=== PATIENT | male | born 1930 | race Caucasian/White ===

== ENCOUNTER 2020-05-09 13:19 | Inpatient (IN) | payer MEDICARE, BC ==
[2020-05-09] MEDS ORDERED: ONDANSETRON 4 MG/2 ML VIAL IVP PRN (17:44)
[2020-05-09] MEDS ORDERED: ACETAMINOPHEN TAB 325 MG TAB PO PRN (17:44)
[2020-05-09] MEDS ORDERED: ALPRAZolam 0.25 MG TAB PO PRN (18:00)
--- NOTE | 2020-05-09 18:58 | US ---
EXAMINATION TYPE: US carotid duplex BILAT DATE OF EXAM: 05/09/2020 COMPARISON: MR CLINICAL HISTORY: arm tingling and numbness. Left arm tingling and numbness. Hx hypertension, hyperli pidemia, previous smoker per patient. EXAM MEASUREMENTS: RIGHT: Peak Systolic Velocity (PSV) cm/sec ----- Right CCA: 67.4 ----- Right ICA: 82.8 ----- Right ECA: 116.8 ICA/CCA ratio: 1.2 RIGHT: End Diastole cm/sec ----- Right CCA: 9.0 ----- Right ICA: 9.1 ----- Right ECA: 0.0 LEFT: Peak Systolic Velocity (PSV) cm/sec ----- Left CCA: 67.4 ----- Left ICA: 53.6 ----- Left ECA: 86.1 ICA/CCA ratio: 0.8 LEFT: End Diastole cm/sec ----- Left CCA: 9.9 ----- Left ICA: 13.0 ----- Left ECA: 0.0 VERTEBRALS (direction of flow): Right Vertebral: Antegrade Left Vertebral: Antegrade Rhythm: Arrhythmia Plaque visualized bilateral CCA, bulb, ICA and ECA. No elevated velocities at this time. Incidental finding: Complex, heterogeneous area seen within left thyroid lobe measuring 1.5 x 0.9 x 1 .3 cm. This area shows vascularity. IMPRESSION: There is antegrade flow in the vertebral arteries. The images and measurements suggest less than 50% stenosis in both internal carotid arteries. There is solid nodule in the left thyroid lobe. Criteria for Assigning % of Stenosis / Diameter reduction (Estimation based on the indirect measurements of the internal carotid artery velocities (ICA PSV). 1. Normal (no stenosis)=ICA PSV < 125 cm/s: ratio < 2.0: ICA EDV<40 cm/s. 2. Less than 50% stenosis=ICA PSV < 125 cm/s: ratio < 2.0: ICA EDV<40 cm/s. 3. 50 to 69% stenosis=ICA PSV of 125 to 230 cm/s: ration 2.0 ? 4.0: ICA EDV 40-100 cm/s. 4. Greater than 70% stenosis to near occlusion= ICA PSV > 230 cm/s: ratio > 4.0: ICA EDV > 100 cm/s. 5. Near occlusion= ICA PSV velocities may be low or undetectable: variable ratio and ICA EDV. 6. Total occlusion=unable to detect flow.
[2020-05-09] MEDS: SENNOSIDES 8.6 MG TAB PO SCH (20:28)
[2020-05-09] MEDS: MEMANTINE 10 MG TAB PO SCH (20:28)
[2020-05-09] MEDS: DOXAZOSIN 1 MG TAB PO SCH (20:29)
[2020-05-09] MEDS: traZODone HCL 50 MG TAB PO SCH (20:29)
[2020-05-09] MEDS: DONEPEZIL 5 MG TAB PO SCH (20:29)
[2020-05-09] MEDS ORDERED: ALPRAZolam 0.5 MG TAB PO SCH (21:00)
[2020-05-09] MEDS ORDERED: AMITRIPTYLINE HCL 10 MG TAB PO SCH (21:00)
[2020-05-10 06:37] LABS: Basophils % (A) 0 %; Eosinophils % (A) 0 %; HCT 39.7 % (39.0-53.0); HGB 13.5 gm/dL (13.0-17.5); Lymphocytes # (A) 0.8 k/uL (1.0-4.8); Lymphocytes % (A) 7 %; MCV 94.3 fL (80.0-100.0); Mean Platelet Volume 7.4; Monocytes # (A) 0.5 k/uL (0-1.0); Monocytes % (A) 4 %; Neutrophils % (A) 88 %; Platelet Count 232 k/uL (150-450); RBC 4.22 m/uL (4.30-5.90); WBC 11.4 k/uL (3.8-10.6)
[2020-05-10] MEDS: SENNOSIDES 8.6 MG TAB PO SCH ×2 (08:28→19:10)
[2020-05-10] MEDS: DULoxetine HCL 60 MG CAPSULE.DR PO SCH (08:28)
[2020-05-10] MEDS: MAGNESIUM OXIDE 400 MG TAB PO SCH (08:28)
[2020-05-10] MEDS: VIT A,C & E-LUTEIN-MINERALS 1 EACH TAB PO SCH (08:28)
[2020-05-10] MEDS: MEMANTINE 10 MG TAB PO SCH ×2 (08:29→19:09)
[2020-05-10] MEDS: CHOLECALCIFEROL 1,000 UNIT TAB PO SCH (08:29)
[2020-05-10] MEDS: ATORVASTATIN 10 MG TAB PO SCH (08:29)
[2020-05-10] MEDS: amLODIPine 10 MG TAB PO SCH (08:29)
[2020-05-10] MEDS: ASPIRIN 81 MG PO SCH (08:29)
[2020-05-10] MEDS: PANTOPRAZOLE 40 MG TABLET PO SCH ×2 (08:29→16:49)
[2020-05-10 11:13] LABS: African American GFR (CKD) 33.8 (60.0-200.0); Anion Gap 9.2 mmol/L (4.00-12.00); Calcium 9.4 mg/dL (8.7-10.3); Carbon Dioxide 27.8 mmol/L (21.6-31.8); Magnesium 2.2 mg/dL (1.5-2.4); Non-African American GFR(CKD) 29.1 (60.0-200.0); Potassium 4.5 mmol/L (3.5-5.5)
--- NOTE | 2020-05-10 11:20 | P.CNNES ---
History of Present Illness Consult date: 05/10/20 Requesting physician: Ariella Dukes Reason for Consult: left arm weakness and numbness History of Present Illness: This is an 89-year-old gentleman with medical history of mild dementia, hypertension, hyperlipidemia, prostate cancer in 1997 status post focal radiation radiation l lower back surgery about 7 years ago, that was transfered from [facility] for left arm weakness and numbness. Patient noticed that he's been having left hand and forearm weakness for the last 1 week. As well as that he's been having left hand numbness for the last 1 year but he felt like it was a getting worse in the last 1 week. He stated that the initially was in the left hand, but now it's moving in the medial side, the ulnar side all the way to the axillay area and to the left side of chest. Patient does have lower neck pain for the last 6 months and he stated that the pain is a 5-6/10. He denies any radiation of the neck pain. He denies any neck trauma or falls recently. He denies difficulty getting his words out or worsening of his vision. He does have poor vision and he stated and that's chronic. He denies any weakness of the lower extremity or any numbness. He stated that he walks unassisted at home and without any difficulties. He resides with his . At [facility] he was given a neck brace for suspicion pinched nerve. There are other concern was possibly a stroke. He was given a diagnosis of dementia and the last for 5 month by his primary care physician as well as psychiatrist since that he was having trouble with his memory (mostly with anterograde memory loss than remote). Regarding his activities of daily living (ADL's), he said that that he is able to feed himself without any assistance, use the bathroom on his own. He doesn't drive because his poor vision and vision. He has not seen a neurologist regarding the memory loss. The patient is on home dose memantine 10 mg 1 tablet twice a day, Aricept 5 mg daily at bedtime. Patient is also on aspirin 81 mg daily. On Zocor. Patient is also on amitriptyline 10 mg daily at bedtime. Also is on now fluoxetine 120 mg daily. Also on trazodone 150 mg daily. Work-up at outside facility consisted of: CT of the head was reported as no acute intracranial process. On the body as stated that the patient has moderate cerebral volume loss. Mild burden nonspecific white matter disease likely related chronic microvascular risk factors. No convincing evidence of acute and infarct. No acute intracranial hemorrhage. EKG is reported as sinus rhythm with PACs with first-degree AV block. Left axis deviation. Abnormal EKG. His labs at outside facility as sodium is 139, potassium 4.2, AST is 21 and ALT 17. BUN 28 and the creatinine is 1.8. Calcium is 9.5. Work-up in our hospital consisted of: Initial vitals: blood pressure: 157/72, heart rate 72, respiratory rate 18, temperature 97.9F orally and pulse oxygen is 97% at room air. Bilateral carotid duplex is reported as: There is anterior grade flow in the vertebral arteries. The images and measurements suggest less than 50% stenosis in both internal carotid arteries. There is a solid nodule in the left thyroid lobe. Wbc on presentation is 11.4. He was restarted on home dose of aspirin 81 mg and the was started on the Lipitor 10 mg daily. Of note upon reviewing medical records [facility] is MRI of the brain in our facility and that was in 11/03/2014 is reported as no evidence of recent infarct. There is a mild to moderate diffuse cerebral atrophy and moderate chronic small vessel ischemic changes noted. Review of Systems The template review of system is reviewed with the patient independent positive and negative as per HPI. Past Medical History Past Medical History: Cancer Additional Past Medical History / Comment(s): Prostate Cancer 1997 History of Any Multi-Drug Resistant Organisms: None Reported Past Surgical History: Back Surgery Past Anesthesia/Blood Transfusion Reactions: No Reported Reaction Past Psychological History: Anxiety, Depression Smoking Status: Former smoker - Past Family History Father Family Medical History: No Reported History Medications and Allergies Home Medications Medication Instructions Recorded Confirmed Type ALPRAZolam [ALPRAZolam XR] 1 tab PO DAILY PRN 05/09/20 05/09/20 History ALPRAZolam [Xanax] 0.5 mg PO HS 05/09/20 05/09/20 History Amitriptyline HCl 10 mg PO HS 05/09/20 05/09/20 History Aspirin 81 mg PO DAILY 05/09/20 05/09/20 History Cholecalciferol [Vitamin D3 (25 1 tab PO DAILY 05/09/20 05/09/20 History Mcg = 1000 Iu)] DULoxetine HCL [Cymbalta] 120 mg PO DAILY 05/09/20 05/09/20 History Donepezil [Aricept] 5 mg PO HS 05/09/20 05/09/20 History Magnesium 500 mg PO DAILY 05/09/20 05/09/20 History Memantine [Namenda] 10 mg PO BID 05/09/20 05/09/20 History Omeprazole 40 mg PO AC-BID 05/09/20 05/09/20 History Simvastatin [Zocor] 1 tab PO DAILY 05/09/20 05/09/20 History Terazosin [Hytrin] 1 mg PO HS 05/09/20 05/09/20 History Vits A,C,E/Lutein/Minerals 1 tab PO DAILY 05/09/20 05/09/20 History [Ocuvite with Lutein Tablet] amLODIPine [Norvasc] 10 mg PO DAILY 05/09/20 05/09/20 History traZODone HCL 150 mg PO HS 05/09/20 05/09/20 History Allergies Allergy/AdvReac Type Severity Reaction Status Date / Time No Known Allergies Allergy Verified 05/09/20 17:34 Physical Examination - Vital Signs Vital Signs: Vital Signs Temp Pulse Pulse Resp BP BP Pulse Ox 05/10/20 06:57 97.7 F 88 17 149/79 97 05/10/20 01:00 97.9 F 77 20 147/70 97 05/09/20 20:00 85 72 20 05/09/20 19:39 98 F 85 20 153/79 96 05/09/20 17:47 97.9 F 72 18 157/72 97 Intake and Output 05/09/20 05/10/20 05/10/20 22:59 06:59 14:59 Intake Total 640 100 Balance 640 100 Intake: Oral 640 100 Other: # Voids 0 Weight 58.967 kg GENERAL: The patient is lying in bed and is not in acute distress. CHEST: The heart rate is regular rate rhythm. No murmurs to auscultation. No carotid bruit bilaterally. LUNG: Clear to auscultation bilaterally no wheezing noted throughout. Not labored breathing. ABDOMEN/GI: Bowel sounds present in all 4 quadrants. No tenderness to palpation throughout. NEUROLOGICAL: Higher mental function: The patient is awake, alert, oriented to self, place and time. Patient is following commands. No aphasia and no neglect. Cranial nerves: The pupils are round, equal and reactive to light and accommodation. Visual valente are full to confrontation throughout. Extraocular movement is intact no nystagmus is noted. Facial sensation is normal to touch throughout. The facial strength is normal throughout. Hearing is normal bilaterally to hand rub. Tongue is midline and moved [id number] without any d ifficulty. No dysarthria is noted. Shoulder shrug is normal bilaterally. Motor: Gait is normal with normal arm swings. The strength is 5-/5 left hand director style. Left distal upper extremity is 5-/5. Otherwise strength is 5/5 throughout. Normal tone and bulk. Cerebellum: Normal finger to nose bilaterally. Sensation: Sensation to touch and pinprick and inconsistent at times he stated that he is having decreased sensation over the left ulnar distribution up on to the mid forearm and at that time she stated the that was normal. Otherwise the rest of the sensation exam is normal to touch and light pinprick.. Reflexes (right/left): 2+ throughout except ankles are 1+ bilaterally Plantars are downgoing bilaterally. Results - Laboratory Findings CBC and BMP: 05/10/20 06:24 05/10/20 06:24 Abnormal Lab Findings: Abnormal Labs 05/10/20 06:24 WBC 11.4 H RBC 4.22 L Neutrophils # 10.0 H Lymphocytes # 0.8 L Assessment and Plan Assessment: This is an 89-year-old gentleman that was transferred from [facility] for further workup of left upper extremity numbness and weakness. Patient stated that the his weakness that has been going on for last 1 week. And his numbness in the left hand is is chronic for the last 1 year but has worsened in the last 1 week moving up the ulnar distribution all the way to the [place] to the left side of the chest. Patient does have chronic history of the base neck pain without any radiation. Acute Left upper extremity weakness with numbness could be due to stroke versus cervical radiculopathy (stated had numbness of left hand for last one year but has worsened in last one weak. Also has base neck pain). Questionable dementia Kidney isnuffiency (not sure if acute vs acute on chronic). Hypertension Hyperlipidemia History of prostate cancer History of the lower back surgery (about 7 years ago) Plan: * CT of the head at outside hospital was reported as no acute intracranial process. On the body as stated that the patient has moderate cerebral volume loss. Mild burden nonspecific white matter disease likely related chronic microvascular risk factors. No convincing evidence of acute and infarct. No acute intracranial hemorrhage. * Bilateral carotid duplex is reported as: There is anterior grade flow in the vertebral arteries. The images and measurements suggest less than 50% stenosis in both internal carotid arteries. There is a solid nodule in the left thyroid lobe. * He was restarted on home dose of aspirin 81 mg and the was started on the Lipitor 10 mg daily. * I ordered MRI of the brain and MRI of the cervical spine. * I ordered 2-D echo * I ordered the lipid panel. 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 * I ordered TSH, vitamin B12, folate, vitamin B6 which will tell us if there is any reversible dementia. * I placed the patient on the continuous cardiac monitoring * In my opinion I would avoid amitriptyline which is tricyclic and has anti- cholinergic activity which can affect with memory and can cause confusion. Also the patient is on duloxetine which I think is a great medication for his age as well as trazodone. I * The patient needs to follow-up with a neurologist as an outpatient within 2-3 weeks for these symptoms as well as the further workup of his dementia. * I will also recommend an EMG with nerve conduction study outpatient. * Regarding kidney insufficiency management, we'll defer that to the primary team. Will defer rest of medical management to primary team. Plan was discussed with the patient and his nurse. Thank you for the consultation. Nicho Robbins MD Neuro-hospitalist Time with Patient: Greater than 30
--- NOTE | 2020-05-10 12:32 | P.HPIM ---
History of Present Illness 89-year-old the pleasant male came in with complains of weakness and numbness in the left arm patient numbness is predominantly on the lateral aspect in the radial nerve territory. Patient has a neck issues in the past patient denied any headache or seizure-like activity. Patient symptoms has been going on for about a week. does have a history of prostate cancer in the past and patient underwent focal radiation and lower back surgery about 7 years ago. She denied any visual problems hearing problems at this time. Patient does have diagnosis of dementia and is undergone up as an does have chronic kidney disease with baseline creatinine around 2 and his present creatinine is around [address] of the head which did not show any acute process patient was subsequently transferred here for further evaluation by neurology and possibly a spinal surgeon. And had a carotid Doppler here which showed about 50% stenosis bilaterally. Patient is on aspirin and Lipitor at this time Review of Systems REVIEW OF SYSTEMS: CONSTITUTIONAL: No fever, no malaise, no fatigue. HEENT: No recent visual problems or hearing problems. Denied any sore throat. CARDIOVASCULAR: No chest pain, orthopnea, PND, no palpitations, no syncope. PULMONARY: No shortness of breath, no cough, no hemoptysis. GASTROINTESTINAL: No diarrhea, no nausea, no vomiting, no abdominal pain. NEUROLOGICAL: No headaches. HEMATOLOGICAL: Denies any bleeding or petechiae. GENITOURINARY: Denies any burning micturition, frequency, or urgency. MUSCULOSKELETAL/RHEUMATOLOGICAL: Denies any joint pain, swelling, or any muscle pain. ENDOCRINE: Denies any polyuria or polydipsia. The rest of the 14-point review of systems is negative. Past Medical History Past Medical History: Cancer Additional Past Medical History / Comment(s): Prostate Cancer 1997 History of Any Multi-Drug Resistant Organisms: None Reported Past Surgical History: Back Surgery Past Anesthesia/Blood Transfusion Reactions: No Reported Reaction Past Psychological History: Anxiety, Depression Smoking Status: Former smoker - Past Family History Father Family Medical History: No Reported History Medications and Allergies Home Medications Medication Instructions Recorded Confirmed Type ALPRAZolam [ALPRAZolam XR] 1 tab PO DAILY PRN 05/09/20 05/09/20 History ALPRAZolam [Xanax] 0.5 mg PO HS 05/09/20 05/09/20 History Amitriptyline HCl 10 mg PO HS 05/09/20 05/09/20 History Aspirin 81 mg PO DAILY 05/09/20 05/09/20 History Cholecalciferol [Vitamin D3 (25 1 tab PO DAILY 05/09/20 05/09/20 History Mcg = 1000 Iu)] DULoxetine HCL [Cymbalta] 120 mg PO DAILY 05/09/20 05/09/20 History Donepezil [Aricept] 5 mg PO HS 05/09/20 05/09/20 History Magnesium 500 mg PO DAILY 05/09/20 05/09/20 History Memantine [Namenda] 10 mg PO BID 05/09/20 05/09/20 History Omeprazole 40 mg PO AC-BID 05/09/20 05/09/20 History Simvastatin [Zocor] 1 tab PO DAILY 05/09/20 05/09/20 History Terazosin [Hytrin] 1 mg PO HS 05/09/20 05/09/20 History Vits A,C,E/Lutein/Minerals 1 tab PO DAILY 05/09/20 05/09/20 History [Ocuvite with Lutein Tablet] amLODIPine [Norvasc] 10 mg PO DAILY 05/09/20 05/09/20 History traZODone HCL 150 mg PO HS 05/09/20 05/09/20 History Allergies Allergy/AdvReac Type Severity Reaction Status Date / Time No Known Allergies Allergy Verified 05/09/20 17:34 Physical Exam Vitals: Vital Signs Temp Pulse Pulse Resp BP BP Pulse Ox 05/10/20 06:57 97.7 F 88 17 149/79 97 05/10/20 01:00 97.9 F 77 20 147/70 97 05/09/20 20:00 85 72 20 05/09/20 19:39 98 F 85 20 153/79 96 05/09/20 17:47 97.9 F 72 18 157/72 97 Intake and Output 05/09/20 05/10/20 05/10/20 22:59 06:59 14:59 Intake Total 640 100 Balance 640 100 Intake: Oral 640 100 Other: # Voids 0 Weight 58.967 kg PHYSICAL EXAMINATION: GENERAL: The patient is alert and oriented x3, not in any acute distress. Well developed, well nourished. HEENT: Pupils are round and equally reacting to light. EOMI. No scleral icterus. No conjunctival pallor. Normocephalic, atraumatic. No pharyngeal erythema. No thyromegaly. CARDIOVASCULAR: S1 and S2 present. No murmurs, rubs, or gallops. PULMONARY: Chest is clear to auscultation, no wheezing or crackles. ABDOMEN: Soft, nontender, nondistended, normoactive bowel sounds. No palpable organomegaly. MUSCULOSKELETAL: No joint swelling or deformity. EXTREMITIES: No cyanosis, clubbing, or pedal edema. NEUROLOGICAL: There may be minimal weakness in the left hand sensory was not tested as neurology evaluated the patient already SKIN: No rashes. Results CBC & Chem 7: 05/10/20 06:24 05/10/20 06:24 Labs: Abnormal Lab Results - Last 24 Hours (Table) 05/10/20 05/10/20 Range/Units 06:24 06:24 WBC 11.4 H (3.8-10.6) k/uL RBC 4.22 L (4.30-5.90) m/uL Neutrophils # 10.0 H (1.3-7.7) k/uL Lymphocytes # 0.8 L (1.0-4.8) k/uL BUN 34.0 H (9.0-27.0) mg/dL Creatinine 2.0 H (0.6-1.5) mg/dL Est GFR (CKD-EPI)AfAm 33.8 L (60.0-200.0) Est GFR (CKD-EPI)NonAf 29.1 L (60.0-200.0) Glucose 138 H (70-110) mg/dL Thrombosis Risk Factor Assmnt - Choose All That Apply Any of the Below Risk Factors Present?: Yes Each Risk Factor Represents 3 Points: Age 75 years or older Thrombosis Risk Factor Assessment Total Risk Factor Score: 3 Thrombosis Risk Factor Assessment Level: Moderate Risk Assessment and Plan Plan: -Weakness in the left arm along with numbness on the lateral aspect of the left time: Probably secondary to cervical radiculopathy patient will undergo MRI neurology evaluated the patient and patient is undergoing MRI of the brain as well. Patient underwent stroke workup as well. -Leukocytosis reactive without any evidence of infection --Chronic kidney disease stage IV patient's present creatinine is at his baseline -Depression -History of prostate cancer status post radiation therapy -DVT prophylaxis with the subcutaneous heparin
[2020-05-10 14:56] VITALS: BMI 20.3
[2020-05-10 16:47] LABS: Glucose,Whole Blood 98 mg/dL (75-99)
[2020-05-10] MEDS: methylPREDNISolone SOD SUCCI 125 MG/2 ML VIAL IV SCH ×2 (16:49→21:42)
--- NOTE | 2020-05-10 16:57 | P.CNOR ---
History of Present Illness - [facility] Consult date: 05/10/20 Requesting physician: Bettie Arreaga Consult reason: neck pain, other (Left upper extremity radiculopathy with w eakness) History of present illness: Patient is a very pleasant 89-year-old male who is seen and examined at the bedside for further evaluation in regards to his cervical spine and left upper extremity. He states he has been experiencing some pain with the left upper extremity over the past year but his symptoms have significantly worsened over the past month. He has pain and numbness that radiates down the left tricep, into the forearm, and towards the pinky finger of his left hand. He feels some weakness with the left upper extremity as well. He denies any recent injuries. He states he is very active in his life. He presented to [facility] after further discussion with his primary care provider. He was then transferred to the [facility] for further evaluation. He currently denies any right upper extremity radiculopathy or weakness. He does have some chronic difficulty with writing. He is able to use keys and buttons without significant difficulty. He does have adequate good range of motion of his cervical spine. He has had MRI imaging performed of his cervical spine. He denies previous surgery in the cervical spine. He states he was recently diagnosed with mild dementia. Patient does have a past medical history of prostate cancer and history of lumbar surgery. Past Medical History Past Medical History: Cancer Additional Past Medical History / Comment(s): Prostate Cancer 1997 History of Any Multi-Drug Resistant Organisms: None Reported Past Surgical History: Back Surgery Past Anesthesia/Blood Transfusion Reactions: No Reported Reaction Past Psychological History: Anxiety, Depression Smoking Status: Former smoker - Past Family History Father Family Medical History: No Reported History Medications and Allergies Home Medications Medication Instructions Recorded Confirmed Type Amitriptyline HCl 10 mg PO HS 05/09/20 05/09/20 History Aspirin 81 mg PO DAILY 05/09/20 05/09/20 History Cholecalciferol [Vitamin D3 (25 1 tab PO DAILY 05/09/20 05/09/20 History Mcg = 1000 Iu)] DULoxetine HCL [Cymbalta] 120 mg PO DAILY 05/09/20 05/09/20 History Donepezil [Aricept] 5 mg PO HS 05/09/20 05/09/20 History Magnesium 500 mg PO DAILY 05/09/20 05/09/20 History Memantine [Namenda] 10 mg PO BID 05/09/20 05/09/20 History Omeprazole 40 mg PO AC-BID 05/09/20 05/09/20 History Simvastatin [Zocor] 1 tab PO DAILY 05/09/20 05/09/20 History Terazosin [Hytrin] 1 mg PO HS 05/09/20 05/09/20 History Vits A,C,E/Lutein/Minerals 1 tab PO DAILY 05/09/20 05/09/20 History [Ocuvite with Lutein Tablet] amLODIPine [Norvasc] 10 mg PO DAILY 05/09/20 05/09/20 History traZODone HCL 150 mg PO HS 05/09/20 05/09/20 History Allergies Allergy/AdvReac Type Severity Reaction Status Date / Time No Known Allergies Allergy Verified 05/09/20 17:34 Physical Examination Physical exam: Patient is awake, alert, and oriented 3 Vital signs stable Good chest excursion with deep inspiration and expiration Examination of the cervical spine reveals skin is intact with no abrasions, lacerations or bruises; no erythema, purulence or signs of infection No significant pain with palpation of the posterior cervical spine or over the trapezius bilaterally Full range of motion of the cervical spine with adequate flexion, extension, and bilateral rotation Motor strength the right upper extremity is 5/5 including 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, interosseous, biceps, triceps, and deltoids Motor strength of the right upper extremity is 4/5 including thumb extension Motor strength of the left upper extremity is 5/5 including interosseous, biceps, triceps, and deltoids Motor strength of the left upper extremity is 4/5 including 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 and thumb extension Brachioradialis reflexes 2+ bilaterally Negative Mancera's sign bilaterally No upper extremity hyperreflexia bilaterally Results MRI of the cervical spine taken on 05/10/2020: C3-4 large left paracentral herniated nucleus pulposus resulting in severe left neural foraminal stenosis; C4-5 retrolisthesis, severe degenerative disc disease, herniated pulposus and facet spondylosis resulting in central canal stenosis and severe left neural foraminal stenosis; C5-6 degenerative disc disease, herniated nucleus pulposus a nd facet spondylosis resulting in central canal stenosis and bilateral neural foraminal stenosis; no obvious cord signal change - Labs Labs: Abnormal Lab Results - Last 24 Hours (Table) 05/10/20 05/10/20 Range/Units 06:24 06:24 WBC 11.4 H (3.8-10.6) k/uL RBC 4.22 L (4.30-5.90) m/uL Neutrophils # 10.0 H (1.3-7.7) k/uL Lymphocytes # 0.8 L (1.0-4.8) k/uL BUN 34.0 H (9.0-27.0) mg/dL Creatinine 2.0 H (0.6-1.5) mg/dL Est GFR (CKD-EPI)AfAm 33.8 L (60.0-200.0) Est GFR (CKD-EPI)NonAf 29.1 L (60.0-200.0) Glucose 138 H (70-110) mg/dL H & H 05/10/20 Range/Units 06:24 Hgb 13.5 (13.0-17.5) gm/dL Hct 39.7 (39.0-53.0) % Result Diagrams: 05/10/20 06:24 05/10/20 06:24 Assessment and Plan Assessment: Assessment: Left upper extremity radiculopathy Left upper extremity weakness Cervicalgia C4-5 retrolisthesis C4-5 and C5-6 central canal stenosis and neural foraminal stenosis C3-4 severe left neural foraminal stenosis Cervical degenerative disc disease Cervical spondylosis Cervicalgia History of prostate cancer Recent mild dementia diagnosis History lumbar surgery (1) Cervical stenosis of spinal canal Current Visit: Yes Status: Acute Code(s): M48.02 - SPINAL STENOSIS, CERVICAL REGION SNOMED Code(s): 17522092 (2) Spondylolisthesis, cervical region Current Visit: Yes Status: Acute Code(s): M43.12 - SPONDYLOLISTHESIS, CERVI CATHERINE REGION SNOMED Code(s): 798180854 (3) Degenerative cervical disc Current Visit: Yes Status: Acute Code(s): M50.30 - OTHER CERVICAL DISC DEGENERATION, UNSP CERVICAL REGION SNOMED Code(s): 49756081 (4) Facet arthropathy, cervical Current Visit: Yes Status: Acute Code(s): M47.812 - SPONDYLOSIS W/O MYELOPATHY OR RADICULOPATHY, CERVICAL REGION SNOMED Code(s): 952838137 (5) Radiculopathy affecting upper extremity Current Visit: Yes Status: Acute Code(s): M54.10 - RADICULOPATHY, SITE UNSPECIFIED SNOMED Code(s): 85616403 (6) Cervicalgia Current Visit: Yes Status: Acute Code(s): M54.2 - CERVICALGIA SNOMED Code(s): 66074062 (7) Upper extremity weakness Current Visit: Yes Status: Acute Code(s): R29.898 - OTH SYMPTOMS AND SIGNS INVOLVING THE MUSCULOSKELETAL SYSTEM SNOMED Code(s): 716344442 (8) Dementia Current Visit: Yes Status: Acute Code(s): F03.90 - UNSPECIFIED DEMENTIA WITHOUT BEHAVIORAL DISTURBANCE SNOMED Code(s): 29431851 (9) History of prostate cancer Current Visit: Yes Status: Acute Code(s): Z85.46 - PERSONAL HISTORY OF MALIGNANT NEOPLASM OF PROSTATE SNOMED Code(s): 142544482 Plan: Plan: 1. Patient has been discussed in detail imaging has been reviewed by Dr. Ángel Ko and myself. Patient does have evidence of multilevel cervical stenosis along with cervicalgia, left upper extremity radiculopathy and weakness. His left upper extremity radiculopathy symptoms have been ongoing over the past year but the radiculopathy and weakness has worsened over the past month. Patient would like to start with conservative treatment. We would plan for conservative treatment. We'll plan to start the patient on methylprednisolone 60 mg IV every 12 hours. We will also plan to consultation with pain management. We did discuss that if he is not improving with conservative treatment he is a candidate for surgical intervention. Based on his imaging and symptoms, we do feel surgical intervention could provide some improvement of his symptoms. The most likely proposed surgical intervention would be a C3-4, C4-5, and C5-6 anterior cervical decompression and fusion with possible corpectomy. Patient states he would like to work through conservative treatment options but would consider surgical intervention if he were to fail conservative treatment options due to the high level of activity he has in his life. We will continue to follow the patient closely. 2. Patient will continue to be seen and examined by multiple other medical providers including medicine and neurology 3. Patient currently waiting for consultation with pain management Time with Patient: Greater than 30 (Including obtaining history, physical examination, reviewing of imaging, and dictation.)
--- NOTE | 2020-05-10 17:16 | ECHOF ---
Referral Reason:stroke MEASUREMENTS -------- HEIGHT: 170.2 cm WEIGHT: 59.0 kg BP: IVSd: 1.2 cm (0.6 - 1.1) LVIDd: 4.5 cm (3.9 - 5.3) LVPWd: 1.2 cm (0.6 - 1.1) IVSs: 1.5 cm LVIDs: 2.9 cm LVPWs: 1.7 cm LA Diam: 2.9 cm (2.7 - 3.8) Ao Diam: 3.6 cm (2.0 - 3.7) AV Cusp: 1.5 cm (1.5 - 2.6) LA Diam: 3.4 cm (2.7 - 3.8) MV EXCURSION: 17.918 mm (> 18.000) MV EF SLOPE: 50 mm/s (70 - 150) EPSS: 0.1 cm MV E Joaquín: 0.65 m/s MV DecT: 202 ms MV A Joaquín: 1.10 m/s MV E/A Ratio: 0.59 RAP: 5.00 mmHg RVSP: 37.58 mmHg FINDINGS -------- Sinus rhythm. This was a technically good study. LV size, wall thickness and systolic function are normal, with an EF greater than 55%. The left trever tricular size is normal. The right ventricle is normal in size. The left atrial size is normal. The right atrial size is normal. The aortic valve is trileaflet, and appears structurally normal. No aortic stenosis or regurgitation. Mild mitral regurgitation is present. Mild tricuspid regurgitation present. There is mild pulmonary hypertension. The right ventricular systolic pressure, as measured by Doppler, is 37.58mmHg. There is no pulmonic regurgitation present. The aortic root size is normal. There is no pericardial effusion. CONCLUSIONS -------- 1. LV size, wall thickness and systolic function are normal, with an EF greater than 55%. 2. The left ventricular size is normal. 3. The right ventricle is normal in size. 4. The left atrial size is normal. 5. The right atrial size is normal. 6. Mild mitral regurgitation is present. 7. Mild tricuspid regurgitation present. 8. There is mild pulmonary hypertension. 9. The right ventricular systolic pressure, as measured by Doppler, is 37.58mmHg. 10. There is no pulmonic regurgitation present. 11. The aortic root size is normal. 12. There is no pericardial effusion. STONE SPLITTER: Janet Whiting RDCS
[2020-05-10] MEDS: traZODone HCL 50 MG TAB PO SCH (19:09)
[2020-05-10] MEDS: DOXAZOSIN 1 MG TAB PO SCH (19:10)
[2020-05-10] MEDS: DONEPEZIL 5 MG TAB PO SCH (19:10)
--- NOTE | 2020-05-10 19:14 | MR ---
EXAMINATION TYPE: MR brain/cspine wo DATE OF EXAM: 05/10/2020 COMPARISON: None HISTORY: LUE, weakness, numbness CONTRAST: Performed utilizing 0 mL intravenous Gadavist gadolinium contrast. TECHNIQUE: Multiplanar, multiecho imaging on a 3.0 Meena magnet is performed through the brain. Stud y is performed within 24 hours of arrival to the hospital. The craniovertebral junction is normal. No tonsillar descent into the foramen magnum is evident. The pituitary is normal. Diffusion-weighted imaging is performed. No abnormal hyperintensity is present to suggest an acute i ntracranial infarct or acute ischemic change. Small amount of hyperintensities within the brainstem. Periventricular white matter hyperintensity i s present findings are likely on the basis of chronic white matter ischemic change. Ventricles and sulci are prominent for the patient age. IMPRESSIONS: 1. Atrophy with periventricular white matter ischemic changes. Small amount white matter change may b e within the brainstem. EXAMINATION TYPE: MR brain/cspine wo DATE OF EXAM: 05/10/2020 COMPARISON: None HISTORY: LUE, weakness, numbness CONTRAST: Performed utilizing 0 mL intravenous Gadavist gadolinium contrast. TECHNIQUE: Multiplanar multiecho imaging on a 3.0 Meena magnet is performed through the cervical spin e. FINDINGS: The craniovertebral junction is normal. Vertebral body alignment is normal. C7-T1: No focal disc herniation or significant disc bulge is evident. No spinal canal stenosis or n eural foraminal stenosis is present. C6-7: There is narrowing of the disc height. Minimal disc bulge is anterior thecal sac contact. No AP spinal canal stenosis present. Mild right foraminal narrowing from uncovertebral joint hypertrophy i s present. Inferior left C6 endplate spurring has moderate anterior thecal sac compression without co rd contact.. C5-6: Endplate spurring with associated disc material has moderate anterior thecal sac contact. Some cord contact without cord deformity is present. Uncovertebral joint hypertrophy with moderate bilater al foraminal narrowing is present.. C4-5: Residual disc bulging has anterior thecal sac contact. No AP spinal canal stenosis present. Lef t foraminal narrowing from uncovertebral joint hypertrophy is present. C3-4: Broad-based disc bulge has mild anterior thecal sac compression. This is greater into the left paracentral region. Uncovertebral joint hypertrophy has moderate to severe left and mild right forami nal narrowing.. C2-3: No focal disc herniation or significant disc bulge is evident. No spinal canal stenosis or rodrick ral foraminal stenosis is present. IMPRESSIONS: 1. Degenerative disc changes greatest at C4-5 C5-6. 2. Disc bulging with endplate spurring present C3-4 left paracentral region has moderate anterior the juanjo sac compression. 3. Endplate spurring with disc material has moderate anterior thecal sac compression at C5-6. 4. Uncovertebral joint hypertrophy contributing to foraminal narrowing appears greatest at C3-4 on th e left.
[2020-05-10 20:29] LABS: Glucose,Whole Blood 155 mg/dL (75-99)
[2020-05-11 06:45] LABS: Glucose,Whole Blood 130 mg/dL (75-99)
[2020-05-11 08:04] VITALS: BP 149/67; PULSE 81; RESP 18; TEMP 97.5
[2020-05-11] MEDS: DULoxetine HCL 60 MG CAPSULE.DR PO SCH (08:23)
[2020-05-11] MEDS: amLODIPine 10 MG TAB PO SCH (08:23)
[2020-05-11] MEDS: methylPREDNISolone SOD SUCCI 125 MG/2 ML VIAL IV SCH (08:24)
[2020-05-11] MEDS: VIT A,C & E-LUTEIN-MINERALS 1 EACH TAB PO SCH (08:24)
[2020-05-11] MEDS: CHOLECALCIFEROL 1,000 UNIT TAB PO SCH (08:24)
[2020-05-11] MEDS: ATORVASTATIN 10 MG TAB PO SCH (08:24)
[2020-05-11] MEDS: ASPIRIN 81 MG PO SCH (08:24)
[2020-05-11] MEDS: SENNOSIDES 8.6 MG TAB PO SCH (08:24)
[2020-05-11] MEDS: PANTOPRAZOLE 40 MG TABLET PO SCH ×2 (08:24→17:16)
[2020-05-11] MEDS: MAGNESIUM OXIDE 400 MG TAB PO SCH (08:24)
[2020-05-11] MEDS: MEMANTINE 10 MG TAB PO SCH (08:24)
[2020-05-11 08:44] LABS: Cholesterol 207 mg/dL (<200); HDL Cholesterol 97 mg/dL (40-60); LDL Cholesterol,Calculated 95 mg/dL (0-99); Triglycerides 75 mg/dL (<150)
[2020-05-11] MEDS ORDERED: FAMOTIDINE 20 MG TAB PO SCH (09:00)
[2020-05-11 10:12] LABS: T4, Free (Free Thyroxine) 1.03 ng/dL (0.78-2.19)
--- NOTE | 2020-05-11 10:31 | P.PN ---
Progress Note - Text Progress Note Date: 05/11/20 The patient is seen and examined at bedside. I evaluated the MRI yesterday and discuss case with our physician surveyor's assistant. I agree with the dictation from yesterday. I spoke with the yesterday as well. The patient feels he is doing very well. He is not having significant pain and he is moving his upper extremity is quite nicely. He has been mobile around the room and into the halls. He feels he has some slight weakness of his left upper extremity. He is not having any new headaches. He is not having any progressive weakness. On exam he's afebrile HEENT is normocephalic atraumatic cranial nerve II through XII are grossly intact At his upper extremities he has good strength with abduction and shoulder flexion. 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 There is no clonus there is no hyperreflexia and is negative Troy's. His MRI is reviewed which showed significant stenosis at his cervical spine C3 4 C4 5 C5 6. There is no evidence of cord change. There is no syrinx. There is no acute or extruded fragment. Assessment and plan Left upper extremity radiculopathy Cervical stenosis C3 4 C4 5 C5 6 with disc degeneration and foraminal encroachment Left upper extremity weakness likely secondary to cervical stenosis, without acute neurologic deficit I think the patient symptoms are stemming from his cervical spine where he has significant stenosis. He does not have evidence of myelopathy or focal syrinx. He is not having aggressive neurologic decline and I think we can start with conservative treatment at this point. He may be having some improvement with the steroid medication and we will continue him on oral course of steroids with a tapering dose. We'll prescribe this for him. I think it is okay for him to be discharged home from a orthopedic spine standpoint. I can plan to see him on follow-up and Luis 2 weeks' time for recheck evaluation or sooner if he is having worsening problems. That he is okay for discharge home today. I discussed this with him and discuss it with his as well. We will prescribe oral tapered dose of steroid and followed closely. He would be a candidate for interventional pain management if his symptoms were to worsen or even for surgery. Significant change in worsening of his symptoms. We are not planning surgical intervention at this point. Answered his questions best my ability and leg which she can understand. We will plan. We'll follow him up in a approximately 2 weeks' time as outpatient.
[2020-05-11 11:56] LABS: Glucose,Whole Blood 132 mg/dL (75-99)
--- NOTE | 2020-05-11 13:49 | P.PN ---
Subjective Progress Note Date: 05/11/20 The patient was seen at bedside and he stated that he is doing well. Denies of any new weakness, numbness or visual disturbance. He denies any worsening weakness of the left upper extremity. Objective - Vital Signs Vital signs: Vital Signs Temp 97.5 F L 05/11/20 07:20 Pulse 81 05/11/20 07:20 Resp 18 05/11/20 07:20 BP 149/67 05/11/20 07:20 Pulse Ox 93 L 05/11/20 07:20 Intake & Output 05/10/20 05/11/20 05/11/20 18:59 06:59 18:59 Output Total 1 Balance -1 Weight 58.967 kg Output: Urine 1 Other: # Voids 2 - Exam GENERAL: The patient is lying in bed and is not in acute distress. NEUROLOGICAL: Higher mental function: The patient is awake, alert, oriented to self, place and time. Patient is following commands. No aphasia and no neglect. Cranial nerves: The pupils are round, equal and reactive to light and accommodation. Visual valente are full to confrontation throughout. Extraocular movement is intact no nystagmus is noted. Facial sensation is normal to touch throughout. The facial strength is normal throughout. Hearing is normal bilaterally to hand rub. Tongue is midline and moved [id number] without any difficulty. No dysarthria is noted. Shoulder shrug is normal bilaterally. Motor: Gait is normal with normal arm swings. 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 Left distal upper extremity is 5-/5. Otherwise strength is 5/5 throughout. Normal tone and bulk. Cerebellum: Normal finger to nose bilaterally. Sensation: Sensation to touch and pinprick and inconsistent at times he stated that he is having decreased sensation over the left ulnar distribution up on to the mid forearm and at that time she stated the that was normal. Otherwise the rest of the sensation exam is normal to touch and light pinprick.. Reflexes (right/left): 2+ throughout except ankles are 1+ bilaterally Plantars are downgoing bilaterally. - Labs CBC & Chem 7: 05/10/20 06:24 05/10/20 06:24 Labs: Abnormal Lab Results - Last 24 Hours (Table) 05/10/20 05/11/20 05/11/20 Range/Units 20:28 06:42 07:15 POC Glucose (mg/dL) 155 H 130 H (75-99) mg/dL Cholesterol (<200) mg/dL HDL Cholesterol (40-60) mg/dL TSH 0.241 L (0.465-4.680) mIU/L 05/11/20 05/11/20 Range/Units 07:15 11:54 POC Glucose (mg/dL) 132 H (75-99) mg/dL Cholesterol 207 H (<200) mg/dL HDL Cholesterol 97 H (40-60) mg/dL TSH (0.465-4.680) mIU/L Assessment and Plan Assessment: This is an 89-year-old gentleman that was transferred from [facility] for further workup of left upper extremity numbness and weakness. Patient stated that the his weakness that has been going on for last 1 week. And his numbness in the left hand is is chronic for the last 1 year but has worsened in the last 1 week moving up the ulnar distribution all the way to the [place] to the left side of the chest. Patient does have chronic history of the base neck pain without any radiation. Acute Left upper extremity weakness with numbness could be due to cervical radiculopathy (stated had numbness of left hand for last one year but has worsened in last one weak. Also has base neck pain). Not acute stroke Cervical radiculopathy (on examination is seems C6-C7 C8 but mostly C7 C8 but imaging is seems C4-C5-C6) Questionable diagnosis of dementia Kidney isnuffiency (not sure if acute vs acute on chronic). Hypertension Hyperlipidemia History of prostate cancer History of the lower back surgery (about 7 years ago) Plan: * CT of the head at outside hospital was reported as no acute intracranial process. On the body as stated that the patient has moderate cerebral volume loss. Mild burden nonspecific white matter disease likely related chronic microvascular risk factors. No convincing evidence of acute and infarct. No acute intracranial hemorrhage. * Bilateral carotid duplex is reported as: There is anterior grade flow in the vertebral arteries. The images and measurements suggest less than 50% stenosis in both internal carotid arteries. There is a solid nodule in the left thyroid lobe. * He was restarted on home dose of aspirin 81 mg and the was started on the Lipitor 10 mg daily. * MR the brain is reported as atrophy with periventricular white matter ischemic changes. Small amounts white matter change may be within the brainstem. * MRI of the cervical spine is reported as degenerative disc disease greater at C4 the C5 and C5-C6. The disc bulging with endplate spurring Present C3-C4 left. Central region has moderate anterior thecal sac compression. Endplate spurring with the disc material has moderate N0 thecal sac compressing at C5- C6. On co-vertebral joint hypertrophy contributing to foraminal narrowing appear greatest at C3-C4 on the left * Orthopedic is the patient and that they documented that the patient the wanted conservative treatment and and if concerns gentleman doesn't improve then the to consider surgical intervention. * Recommend EMG with nerve conduction study of bilateral upper extremity as an outpatient * 2-D echo: Was reported as left ventricular size, wall thickness and systolic function are normal, with an ejection fraction of greater than 55%. Left ventricular size is normal. Left atrial size is normal. 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 * TSH: 0.241 which is low but the free T4 is 1.03 which is normal. Pending Vitamin B12, folate, vitamin B6 which will tell us if there is any reversible dementia. * I placed the patient on the continuous cardiac monitoring * Amitriptyline was discontinued because has anticholinergic. In my opinion down the line the patient's is avoid any medication that would the affect cognition such as anticholinergic, benzos. * The patient needs to follow-up with a neurologist as an outpatient within 2-3 weeks for these symptoms as well as the further workup of his dementia. * * Regarding kidney insufficiency management, we'll defer that to the primary team. Will defer rest of medical management to primary team. Plan was discussed with the patient and his nurse. No further neurological workup is needed at this time. Nicho Robbins MD Neuro-hospitalist Time with Patient: Less than 30
--- NOTE | 2020-05-12 09:05 | P.DS ---
Providers Date of admission: 05/09/20 16:31 Expected date of discharge: 05/11/20 Attending physician: Karina Spencer Consults: 05/09/20 17:39 Consult Physician Urgent Consulting Provider: Nicho Robbins Consult Reason/Comments: left arm weakness, numbness Do you want consulting provider notified?: Yes 05/10/20 12:28 Consult Physician Routine Consulting Provider: Joaquin Ko Consult Reason/Comments: Cervical radiculopathy Do you want consulting provider notified?: Yes Primary care physician: Domonique Rea Hospital Course: final Diagnosis -Weakness in the left arm along with numbness on the lateral aspect of the left side: Probably secondary to cervical radiculopathy -Leukocytosis reactive without any evidence of infection -Chronic kidney disease stage IV -Depression -History of prostate cancer status post radiation therapy -DVT prophylaxis Discharge disposition Patient is being discharged in a stable condition with guarded prognosis to home. Patient will follow-up with Dr. Rea in the outpatient setting upon discharge. Patient also instructed to follow-up with neurology and Dr. Ko . Patient is to continue with short prednisone taper upon discharge. Total time taken is greater than 35 minutes. Hospital course This is a 89-year-old male who was recently admitted with weakness and numbness in the left arm on the lateral aspect in the radial nerve territory and was being closely monitored. Patient was sent from another hospital for neurological evaluation. 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 Patient had a CT of the head at the pre-existing hospital which was negative for any process. Patient underwent MRI showing atrophy with periventricular white matter ischemic changes with a small amount of white matter change may be present within the brainstem and degenerative disc changes in the C4 through C6 with some for a minimal narrowing in the C3 to 4 on the left area. Patient was also seen and evaluated by orthopedic and pain management Dr. Ko and will continue with conservative management at this time and will follow-up with him in the outpatient setting. Currently no reports of chest pain, shortness of breath, or palpitations. Patient is afebrile. No reports of nausea or vomiting and patient is tolerating diet. Patient will be discharged home today. On exam vital signs are stable. Temp is 97.5F, pulse is 81, respirations are 18, blood pressure is 149/67 , oxygen saturation is 93% on room air. Cardio S1, S2 are muffled. Respiratory system shows diminished breath sounds at the bases with no wheezing or rhonchi noted. Abdomen is soft and nontender. Nervous system shows no focal deficits. Please refer to medication reconciliation sheet for a list of medications. Patient Condition at Discharge: Stable Plan - Discharge Summary Discharge Rx Participant: Yes New Discharge Prescriptions: New predniSONE 20 mg PO DIRECTED #24 tab Famotidine [Pepcid] 20 mg PO DAILY #12 tablet Acetaminophen Tab [Tylenol] 650 mg PO Q6HR PRN tab PRN Reason: Fever And/ Or Pain Continue Simvastatin [Zocor] 1 tab PO DAILY Aspirin 81 mg PO DAILY Donepezil [Aricept] 5 mg PO HS Memantine [Namenda] 10 mg PO BID Cholecalciferol [Vitamin D3 (25 Mcg = 1000 Iu)] 1 tab PO DAILY Magnesium 500 mg PO DAILY Omeprazole 40 mg PO AC-BID DULoxetine HCL [Cymbalta] 120 mg PO DAILY traZODone HCL 150 mg PO HS Terazosin [Hytrin] 1 mg PO HS amLODIPine [Norvasc] 10 mg PO DAILY Vits A,C,E/Lutein/Minerals [Ocuvite with Lutein Tablet] 1 tab PO DAILY Discontinued ALPRAZolam [ALPRAZolam XR] 1 tab PO DAILY PRN PRN Reason: Anxiety Amitriptyline HCl 10 mg PO HS ALPRAZolam [Xanax] 0.5 mg PO HS Discharge Medication List Aspirin 81 mg PO DAILY 05/09/20 [History] Cholecalciferol [Vitamin D3 (25 Mcg = 1000 Iu)] 1 tab PO DAILY 05/09/20 [History] DULoxetine HCL [Cymbalta] 120 mg PO DAILY 05/09/20 [History] Donepezil [Aricept] 5 mg PO HS 05/09/20 [History] Magnesium 500 mg PO DAILY 05/09/20 [History] Memantine [Namenda] 10 mg PO BID 05/09/20 [History] Omeprazole 40 mg PO AC-BID 05/09/20 [History] Simvastatin [Zocor] 1 tab PO DAILY 05/09/20 [History] Terazosin [Hytrin] 1 mg PO HS 05/09/20 [History] Vits A,C,E/Lutein/Minerals [Ocuvite with Lutein Tablet] 1 tab PO DAILY 05/09/20 [History] amLODIPine [Norvasc] 10 mg PO DAILY 05/09/20 [History] traZODone HCL 150 mg PO HS 05/09/20 [History] Acetaminophen Tab [Tylenol] 650 mg PO Q6HR PRN tab 05/11/20 [Rx] Famotidine [Pepcid] 20 mg PO DAILY #12 tablet 05/11/20 [Rx] predniSONE 20 mg PO DIRECTED #24 tab 05/11/20 [Rx] Follow up Appointment(s)/Referral(s): Domonique Rea MD [Primary Care Provider] - 1-2 Days (Please call office when open for appointment. Thank you.) Blu Billingsley MD [REFERRING] - 2 Weeks (Office will call you for an appointment) Joaquin Ko DO [Doctor of Osteopathic Medicine] - 05/26/20 9:30 am Patient Instructions/Handouts: Neck Pain (DC) Activity/Diet/Wound Care/Special Instructions: Okay to mobilize and do light activity as tolerated. Avoid heavy or rigorous work. Follow up with neurology in 2 weeks Follow-up with primary care provider upon discharge Follow-up with orthopedics and pain management in the outpatient setting as discussed Discharge Disposition: HOME SELF-CARE
== END 2020-05-11 18:00 | disposition home or self-care (01) | DRG 552 ==
LOC: 4SSUR 16:31
PROVIDERS: ADMIT Internal Medicine; ATTEND Internal Medicine
DX: M48.02 Spinal stenosis, cervical region (principal); N18.4 Chronic kidney disease, stage 4 (severe); M50.121 Cervical disc disorder at C4-C5 level with radiculopathy; F03.90 Unspecified dementia, unspecified severity, without behavioral disturbance, psychotic disturbance, mood disturbance, and anxiety; M50.122 Cervical disc disorder at C5-C6 level with radiculopathy; E78.5 Hyperlipidemia, unspecified; F32.9 Major depressive disorder, single episode, unspecified; I44.0 Atrioventricular block, first degree; I65.23 Occlusion and stenosis of bilateral carotid arteries; H54.7 Unspecified visual loss; M43.12 Spondylolisthesis, cervical region; F41.9 Anxiety disorder, unspecified; I12.9 Hypertensive chronic kidney disease with stage 1 through stage 4 chronic kidney disease, or unspecified chronic kidney disease; Z92.3 Personal history of irradiation; Z87.891 Personal history of nicotine dependence; Z85.46 Personal history of malignant neoplasm of prostate; Z79.899 Other long term (current) drug therapy; Z79.82 Long term (current) use of aspirin
CPT/HCPCS: 70551; 72141; 80048; 80061; 82607; 82747; 83036; 83735; 84207; 84439; 84443; 85025; 93306; 93880

== ENCOUNTER → 2020-07-24 | Outpatient (CLI) | payer MEDICARE, BC ==
[2020-07-24 11:21] VITALS: BP 137/75; PULSE 74; RESP 18; TEMP 97.6
--- NOTE | 2020-07-24 11:36 | P.CONS ---
History of Present Illness - Reason for Consult Consult date: 07/24/20 - Chief Complaint Neck and left arm pain - History of Present Illness This is a 9-year-old gentleman with history of neck pain with radiation to the left shoulder and numbness of the way down to his left hand. 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 He denies any bowel or bladder dysfunction or any weakness in the upper or lower extremities. The patient failed to respond to physical therapy previously. He was referred to our clinic to try interventional pain procedures before resorting to a more invasive surgical option. The patient has mild degree of dementia and he lives with his . Past Medical History Past Medical History: Cancer, COPD, GERD/Reflux, Hyperlipidemia, Hypertension, Prostate Disorder Additional Past Medical History / Comment(s): hx Prostate Cancer-radioactive seeds for tx, adrienne inguinal hernias, constipation, diff chewing food well, History of Any Multi-Drug Resistant Organisms: None Reported Past Surgical History: Appendectomy, Back Surgery, Tonsillectomy Additional Past Surgical History / Comment(s): lower back surgery, adrienne cataracts,- legally blind Past Anesthesia/Blood Transfusion Reactions: No Reported Reaction Past Psychological History: Anxiety, Depression Smoking Status: Former smoker Past Alcohol Use History: Rare Additional Past Alcohol Use History / Comment(s): quit smoking 20 yrs ago Past Drug Use History: None Reported - Past Family History Father Family Medical History: Cancer Mother Family Medical History: Cancer Brother(s) Family Medical History: Cancer Medications and Allergies Home Medications Medication Instructions Recorded Confirmed Type Aspirin 81 mg PO DAILY 05/09/20 05/09/20 History Cholecalciferol [Vitamin D3 (25 1 tab PO DAILY 05/09/20 05/09/20 History Mcg = 1000 Iu)] DULoxetine HCL [Cymbalta] 120 mg PO DAILY 05/09/20 05/09/20 History Donepezil [Aricept] 5 mg PO HS 05/09/20 05/09/20 History Magnesium 500 mg PO DAILY 05/09/20 05/09/20 History Memantine [Namenda] 10 mg PO BID 05/09/20 05/09/20 History Omeprazole 40 mg PO AC-BID 05/09/20 05/09/20 History Simvastatin [Zocor] 1 tab PO DAILY 05/09/20 05/09/20 History Terazosin [Hytrin] 1 mg PO HS 05/09/20 05/09/20 History Vits A,C,E/Lutein/Minerals 1 tab PO DAILY 05/09/20 05/09/20 History [Ocuvite with Lutein Tablet] amLODIPine [Norvasc] 10 mg PO DAILY 05/09/20 05/09/20 History traZODone HCL 150 mg PO HS 05/09/20 05/09/20 History Acetaminophen Tab [Tylenol] 650 mg PO Q6HR PRN tab 05/11/20 Rx Famotidine [Pepcid] 20 mg PO DAILY #12 tablet 05/11/20 Rx predniSONE 20 mg PO DIRECTED #24 tab 05/11/20 Rx Allergies Allergy/AdvReac Type Severity Reaction Status Date / Time No Known Allergies Allergy Verified 07/20/20 14:06 Physical Exam Vitals: Vital Signs Temp Pulse Resp BP Pulse Ox 07/24/20 11:19 97.6 F 74 18 137/75 97 - Constitutional General appearance: thin - EENT Eyes: PERRLA - Neurologic Neuro exam of the upper extremities showed normal and symmetrical muscle strength and normal biceps reflex bilaterally however absent biceps reflex bilaterally. Normal range of motion of the cervical spine Mild tenderness in the cervical paravertebral musculature on the left side Neurologic: CNII-XII intact - Psychiatric Psychiatric: A&O x's 3, appropriate affect, intact judgment & insight Assessment and Plan Plan: This is a 9-year-old gentleman with left cervical radiculopathy due to neural foraminal stenosis and disc bulging. The patient failed to respond to physical therapy previously. The patient may benefit from getting cervical epidural steroid injection under fluoroscopic guidance at the C7-T1 level in the left paramedian approach. The procedure was explained to the patient and his questions were answered. I asked the patient to hold his aspirin for 72 hours before the procedure. I thank you for the referral
== END ==
LOC: PNWHC3 11:00
PROVIDERS: ATTEND Anesthesiology
DX: M54.12 Radiculopathy, cervical region (principal); M48.02 Spinal stenosis, cervical region; M50.20 Other cervical disc displacement, unspecified cervical region; F32.9 Major depressive disorder, single episode, unspecified; I10 Essential (primary) hypertension; J44.9 Chronic obstructive pulmonary disease, unspecified; E78.5 Hyperlipidemia, unspecified; Z87.891 Personal history of nicotine dependence
CPT/HCPCS: 99211

== ENCOUNTER 2020-08-11 11:06 | Day surgery (SDC) | payer MEDICARE, BC ==
[2020-08-07 16:23] VITALS: BMI 19.3
[~2020-08-11 11:06] MED LIST: LACTATED RINGERS 1,000 ML IV SCH
[2020-08-11 11:30] VITALS: TEMP 97
[2020-08-11] MEDS ORDERED: DEXAMETHASONE SOD PHOSPHATE 10 MG/ML 1 ML VIAL ONE (12:27)
[2020-08-11] MEDS ORDERED: fentaNYL (PF) 50 MCG/ML 2 ML AMP ONE (12:27)
[2020-08-11] MEDS ORDERED: IOPAMIDOL M200 10 ML VIAL ONE (12:27)
--- NOTE | 2020-08-11 12:41 | P.PCN ---
Date of Procedure: 08/11/20 Procedure(s) Performed: . PROCEDURE 1. Cervical epidural steroid injection under fluoroscopic guidance, C7-T1 (fluoroscopy images available in the radiology department ) 2. Cervical epidurogram. PREOPERATIVE DIAGNOSIS: 1- Cervical Degenerative Disc Diseases 2- Cervical radiculopathy., 3-cervical foraminal stenosis POSTOPERATIVE DIAGNOSIS: : 1- Cervical Degenerative Disc Diseases , 2- Cervical radiculopathy. 3-,cervical foraminal stenosis ANESTHESIA: Monitored anesthesia care as per anesthesia department EBL 0 PROCEDURE INDICATION: The patient with neck pain and radiculitis unresponsive to conservative treatment consents for procedure. PROCEDURE DESCRIPTION / TECHNIQUE: The patient was seen and identified in the preoperative area. Risks, benefits, complications, including but not limited to infections ,bleeding , allergic reactions to the medications ,and not complete pain releife, and alternatives were discussed with the patient, the patient agreed to proceed with the procedure and signed the consent. Patient was taken to the OR and time out was completed. The patient was placed in the prone position on the procedure table. A pillow was placed under the patients chest to increase the cervical interlaminar space. The cervical area was prepped and draped in the usual sterile fashion. Vital signs were closely monitored during the procedure. Conscious sedation was used during the procedure to decrease patients anxiety. Using anterior-posterior fluoroscopy, the C7-T1 interlaminar space was identified and the skin over this site was marked and then infiltrated with 1% lidocaine subcutaneously. Subsequently, a 20-gauge 3-1/2-inch Tuohy epidural needle was inserted and advanced toward the epidural space by means of the ``hanging-drop technique and guided by AP and lateral fluoroscopy. The correct needle position in the epidural space was verified with the injection of 2 mL of the water soluble contrast dye [id number]-[id number] and observing an excellent epidurogram with the epidural spread of the dye, after negative aspiration for blood and CSF and in the absence of paresthesias. Again after negative aspiration, mixture containing 15 mg Dexamethasone and 2 ml of preservative- free normal saline injected and a washout of epidurogram was seen. Needle was withdrawn intact, skin was cleansed, and bandages were applied. Complications= none. Disposition= patient was placed in supine position and transferred to the recovery room area in stable condition and there was no evidence of upper or lower extremity motor or sensory deficit after the procedure patient was discharged from recovery room after discharge criteria met and home discharge instructions was given by the staff and patient will follow with the pain clinic in 2-4 weeks
[2020-08-11] MEDS ORDERED: IV FLUID CONTINUATION 1,000 ML IV ONE ×2 (12:44)
[2020-08-11 13:04] VITALS: RESP 18
[2020-08-11] MEDS ORDERED: hydrALAZINE HCL 20 MG/ML 1 ML VIAL ONE (13:15)
--- NOTE | 2020-08-11 13:47 | FL ---
EXAMINATION TYPE: FL guided pain mgmt statistic DATE OF EXAM: 08/11/2020 HISTORY: Fluoroscopy time 2 seconds of fluoroscopy provided. IMPRESSION: 1. Fluoroscopy time.
[2020-08-11 13:48] VITALS: BP 162/72; PULSE 68
== END 2020-08-11 13:55 | disposition home or self-care (01) ==
LOC: ORPAIN 11:06
PROVIDERS: ATTEND Specialist
DX: M50.10 Cervical disc disorder with radiculopathy, unspecified cervical region (principal); M48.02 Spinal stenosis, cervical region; E78.5 Hyperlipidemia, unspecified; J44.9 Chronic obstructive pulmonary disease, unspecified; I12.9 Hypertensive chronic kidney disease with stage 1 through stage 4 chronic kidney disease, or unspecified chronic kidney disease; N18.9 Chronic kidney disease, unspecified; F41.9 Anxiety disorder, unspecified; F32.9 Major depressive disorder, single episode, unspecified; K21.9 Gastro-esophageal reflux disease without esophagitis; Z79.899 Other long term (current) drug therapy; Z85.46 Personal history of malignant neoplasm of prostate; Z88.1 Allergy status to other antibiotic agents
CPT/HCPCS: 62321; J0360; J1100; J3010; Q9966

== ENCOUNTER 2020-09-05 11:14 | Day surgery (SDC) | payer MEDICARE, BC ==
[2020-08-31 13:48] VITALS: BMI 17.5
[2020-09-05 11:37] VITALS: TEMP 97.6
[2020-09-05] MEDS ORDERED: DEXAMETHASONE SOD PHOSPHATE 10 MG/ML 1 ML VIAL ONE (12:22)
[2020-09-05] MEDS ORDERED: MIDAZOLAM 2 MG/2 ML VIAL ONE (12:22)
[2020-09-05] MEDS ORDERED: IOPAMIDOL M200 10 ML VIAL ONE (12:22)
[2020-09-05] MEDS ORDERED: fentaNYL (PF) 50 MCG/ML 2 ML AMP ONE (12:22)
--- NOTE | 2020-09-05 12:36 | P.PCN ---
Date of Procedure: 09/05/20 Procedure(s) Performed: PROCEDURE 1. Cervical epidural steroid injection under fluoroscopic guidance, C7-T1 (fluoroscopy images available in the radiology department ) 2. Cervical epidurogram. PREOPERATIVE DIAGNOSIS: 1- Cervical Degenerative Disc Diseases 2- Cervical radiculopathy., 3-cervical foraminal stenosis POSTOPERATIVE DIAGNOSIS: : 1- Cervical Degenerative Disc Diseases , 2- Cervical radiculopathy. 3-,cervical foraminal stenosis ANESTHESIA: Monitored anesthesia care as per anesthesia department EBL 0 PROCEDURE INDICATION: The patient with neck pain and radiculitis unresponsive to conservative treatment consents for procedure. PROCEDURE DESCRIPTION / TECHNIQUE: The patient was seen and identified in the preoperative area. Risks, benefits, complications, including but not limited to infections ,bleeding , allergic reactions to the medications ,and not complete pain releife, and alternatives were discussed with the patient, the patient agreed to proceed with the procedure and signed the consent ,Patient was taken to the OR and time out was completed. The patient was placed in the prone position on the procedure table. A pillow was placed under the patients chest to increase the cervical interlaminar space. The cervical area was prepped and draped in the usual sterile fashion. Vital signs were closely monitored during the procedure. Conscious sedation was used during the procedure to decrease patients anxiety. Using anterior- posterior fluoroscopy, the C7-T1 interlaminar space was identified and the skin over this site was marked and then infiltrated with 1% lidocaine subcutaneously. Subsequently, a 20-gauge 3-1/2-inch Tuohy epidural needle was inserted and advanced toward the epidural space by means of the ``hanging-drop technique and guided by AP and lateral fluoroscopy. The correct needle position in the epidural space was verified with the injection of 2 mL of the water soluble contrast dye [id number]-[id number] and observing an excellent epidurogram with the epidural spread of the dye, after negative aspiration for blood and CSF and in t he absence of paresthesias. Again after negative aspiration, mixture containing 15 mg Dexamethasone and 2 ml of preservative-free normal saline injected and a washout of epidurogram was seen. Needle was withdrawn intact, skin was cleansed, and bandages were applied. Complications= none. Disposition= patient was placed in supine position and transferred to the recovery room area in stable condition and there was no evidence of upper or lower extremity motor or sensory deficit after the procedure patient was discharged from recovery room after discharge criteria met and home discharge instructions was given by the staff and patient will follow with the pain clinic in 2-4 weeks
[2020-09-05] MEDS ORDERED: IV FLUID CONTINUATION 700 ML IV ONE (12:39)
[2020-09-05 12:45] VITALS: RESP 16
--- NOTE | 2020-09-05 12:48 | FL ---
Fluoroscopy INDICATION: Pain FINDINGS: Fluoroscopy time: 2 seconds. Images obtained: 1. IMPRESSIONS: 1. Documentation of fluoroscopy.
[2020-09-05 12:56] VITALS: BP 146/71; PULSE 60
== END 2020-09-05 13:15 | disposition home or self-care (01) ==
LOC: ORPAIN 11:14
PROVIDERS: ATTEND Specialist
DX: M50.10 Cervical disc disorder with radiculopathy, unspecified cervical region (principal); M48.02 Spinal stenosis, cervical region; I10 Essential (primary) hypertension
CPT/HCPCS: 62321; J2250; J1100; J3010; Q9966

== ENCOUNTER → 2020-09-18 | Outpatient (CLI) | payer MEDICARE, BC ==
[2020-09-18 13:44] VITALS: BP 146/72; PULSE 75; RESP 16
--- NOTE | 2020-09-18 14:40 | P.PN ---
Subjective Progress Note Date: 09/18/20 This is a follow-up visit for this 89 years old male with a chronic history of severe neck pain with radiation to the left upper extremity associated with numbness and tingling sensation, he is diagnosed with cervical radiculopathy and cervical degenerative disc disease and cervical foraminal stenosis, status post cervical epidural steroid injections 2, she reported he had 0 benefit from it , he continued to have severe pain and numbness and he had some weakness in his left upper extremity Objective - Vital Signs Vital signs: Vital Signs Temp Pulse 75 09/18/20 13:43 Resp 16 09/18/20 13:43 BP 146/72 09/18/20 13:43 Pulse Ox 100 09/18/20 13:43 - Exam Physical Examinations : -Constitutiona : Cooperative , not in acute distress . -HEENT : nech : supple , no Lymphadenopathy , normal thyroid size . : eyes : no ptosis , no icterus, no photophobia . - neurologic : Cranial nerve II to XII intact , no focal neurological deffecit . -psychatric : alert , oriented X 3 , appropriate affect , intact judgment and insight . -Lymphatic : no Lymphadenopathy . - musculoskeltal : Cervical Spine motor stregnth in the deltoid and biceps, 5/5 right side , 4/5 Left side motor stregnth biceps and the wrist extensors 5/5 right side ,4/5 left side . motor stregnth in the triceps muscle . 5/5 Right side , 4/5 Left side deep tendon reflexes normal at the biceps , normal at Brachioradialis , normal at triceps. cervical facet loading test: Positive Bilaterally Spurling test= positive Right , positive left. Neck distraction test= positive Right , positive left. Troy sign= positive right, positive left . Lumber spine moter stegnth lower extremities ,thigh and legs 5/5 Right side , 5/5 Left side MRI of the cervical spine= multilevel cervical foraminal stenosis multilevel cervical degenerative disc disease Assessment and Plan Plan: Assessment and plan=1-cervical radiculopathy. 2-cervical foraminal stenosis. 3-cervical degenerative disc disease. he reported that he had a 0 benefit from cervical epidural steroid injections, Patient could benefit from Celebrex 100 mg by mouth daily. And will follow up with Dr Ko for evaluation of possible surgical interventions Time with Patient: Less than 30
== END ==
LOC: PNWHC3 13:33
PROVIDERS: ATTEND Specialist
DX: M54.12 Radiculopathy, cervical region (principal); M48.02 Spinal stenosis, cervical region; M50.30 Other cervical disc degeneration, unspecified cervical region; F03.90 Unspecified dementia, unspecified severity, without behavioral disturbance, psychotic disturbance, mood disturbance, and anxiety; N18.4 Chronic kidney disease, stage 4 (severe); Z88.1 Allergy status to other antibiotic agents; Z79.82 Long term (current) use of aspirin
CPT/HCPCS: 99211